=== PATIENT | male | born 2005 | race Caucasian/White ===

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

== ENCOUNTER 2025-02-10 13:41 | Outpatient (REF) | payer OTHER, SELFPAY ==
[2025-02-10 15:41] LABS: ALT 144 U/L (16-63); AST 61 U/L (15-37); Alkaline Phosphatase 87 U/L (46-116); Anion Gap 12.1 mmol/L (3-11); BUN 12 mg/dL (7-18); Bilirubin, Total 0.3 mg/dL (0.2-1.0); CO2 23.9 mmol/L (21.0-32.0); CREATININE 0.9 mg/dL (0.70-1.30); Chloride 103 mmol/L (98-107); Estimated GFR 125.39 (mL/min/1.73m2); Glucose 250 mg/dL (74-106); Potassium 3.9 mmol/L (3.5-5.1); Sodium 139 mmol/L (136-145); Total Protein 6.9 g/dL (6.4-8.2)
== END 2025-02-10 13:42 | disposition home or self-care (01) ==
LOC: NCHCN 13:41
PROVIDERS: PCP Family Medicine; Visit Provider Family Medicine
DX: I10 Essential (primary) hypertension (principal)
CPT/HCPCS: 80053

== ENCOUNTER 2025-02-19 12:20 | Outpatient (REF) | payer OTHER, SELFPAY ==
[2025-02-19 14:54] LABS: Iron 66 ug/dL (65-175); Total Iron Binding Capacity 325 ug/dL (250-450); Transferrin Sat 20 % (20-55)
[2025-02-19 15:28] LABS: Ferritin 269 ng/mL (26-388)
[2025-02-20 11:06] LABS: Hepatitis C Ab w Rflx HCV PCR Negative (Negative)
[2025-02-20 13:37] LABS: HBs Antibody, Quant 11.2 mIU/mL (See Note); Hepatitis B Surface Ab Positive (See Note)
== END 2025-02-19 12:21 | disposition home or self-care (01) ==
LOC: NCHCN 12:20
PROVIDERS: PCP Family Medicine; Visit Provider Family Medicine
DX: Z11.59 Encounter for screening for other viral diseases (principal); G47.9 Sleep disorder, unspecified
CPT/HCPCS: 86706; 86803; 82728; 83540; 83550

== ENCOUNTER 2025-05-16 15:04 | Outpatient (REF) | payer OTHER, SELFPAY ==
[2025-05-16 18:05] LABS: COMMENT (LAB VIEW ONLY) 365.68 mg/dL; Microalb ug/mg Crea 65.3 ug/mg Cr
== END 2025-05-16 15:05 | disposition home or self-care (01) ==
LOC: NCHCN 15:04
PROVIDERS: PCP Family Medicine; Visit Provider Family Medicine
DX: E11.9 Type 2 diabetes mellitus without complications (principal)
CPT/HCPCS: 82043; 82570